=== PATIENT | female | born 1965 | race Caucasian/White ===

== ENCOUNTER → 2017-10-06 | Outpatient (CLI) | payer MEDICAID ==
[2017-10-06 10:24] LABS: T4, Free (Free Thyroxine) 0.83 ng/dL (0.78-2.19)
== END ==
LOC: LABWHC1 09:22
PROVIDERS: ATTEND Obstetrics & Gynecology
DX: N91.2 Amenorrhea, unspecified (principal); Z13.220 Encounter for screening for lipoid disorders; Z13.29 Encounter for screening for other suspected endocrine disorder
CPT/HCPCS: 36415; 80061; 82670; 82947; 83001; 83002; 84439; 84443

== ENCOUNTER → 2018-07-23 | Outpatient (CLI) | payer MEDICAID ==
[2018-07-24 04:06] LABS: T4, Free (Free Thyroxine) 1.1 ng/dL (0.80-1.80)
[2018-07-24 04:10] LABS: Vitamin D 25 Hydroxy 30.8 ng/mL (30.0-100.0)
== END | disposition home or self-care (01) ==
LOC: LABWHC1 14:33
PROVIDERS: ATTEND Obstetrics & Gynecology
DX: R53.83 Other fatigue (principal); G47.9 Sleep disorder, unspecified; N95.1 Menopausal and female climacteric states; R61 Generalized hyperhidrosis
CPT/HCPCS: 36415; 82306; 82607; 82670; 83001; 84403; 84439; 84443

== ENCOUNTER → 2018-08-26 | Outpatient (CLI) | payer MEDICAID ==
--- NOTE | 2018-08-27 10:09 | MM ---
Reason for exam: screening (asymptomatic). Last mammogram was performed 1 year and 3 months ago. History: Patient is postmenopausal. Physical Findings: A clinical breast exam by your physician is recommended on an annual basis and results should be correlated with mammographic findings. MG 3D Screening Mammo W/Cad Bilateral CC and MLO view(s) were taken. Prior study comparison: May 23, 2017, bilateral MG 3d screening mammo w/cad. September 30, 2014, bilateral MG screening mammo w CAD. The breast tissue is heterogeneously dense. This may lower the sensitivity of mammography. There is no discrete abnormality. No significant changes when compared with prior studies. ASSESSMENT: Negative, BI-RAD 1 RECOMMENDATION: Routine screening mammogram of both breasts in 1 year.
== END | disposition home or self-care (01) ==
LOC: RADMAMWWP 08:28
PROVIDERS: ATTEND Obstetrics & Gynecology
DX: Z12.31 Encounter for screening mammogram for malignant neoplasm of breast (principal)
CPT/HCPCS: 77063; 77067

== ENCOUNTER → 2018-09-14 | Outpatient (CLI) | payer MEDICAID | END | disposition home or self-care (01) | LOC: LABWHC1 08:36 | PROVIDERS: ATTEND Obstetrics & Gynecology | DX: N95.1 Menopausal and female climacteric states (principal); G47.00 Insomnia, unspecified; R53.83 Other fatigue; R61 Generalized hyperhidrosis; D51.9 Vitamin B12 deficiency anemia, unspecified | CPT/HCPCS: 36415; 82670; 83001; 84403 ==

== ENCOUNTER 2019-06-05 12:21 | Emergency (ER) | payer MEDICAID ==
[2019-06-05 12:26] VITALS: TEMP 98.2
--- NOTE | 2019-06-05 12:51 | ED ---
General Adult HPI - General Chief complaint: Extremity Injury, Upper Stated complaint: broken arm-sent by [facility] Time Seen by Provider: 06/05/19 12:25 Source: patient, RN notes reviewed, old records reviewed Mode of arrival: ambulatory Limitations: no limitations - History of Present Illness Initial comments: This is a 53-year-old female who presents emergency Department complaining of a right forearm pain. Patient states last evening she was jumping out of bed after having had a few drinks fell off the bed and had significant pain in the right forearm. Patient went to urgent care today they told her she comes emergency Department but she's not really sure why. Patient denies any numbness. Patient denies any upper arm or shoulder pain patient does any other injury at this time. - Related Data Previous Rx's Medication Instructions Recorded Hydrocodone/Acetaminophen [Baudette 1 each PO Q4HR PRN #14 tab 06/05/19 5325] Allergies Allergy/AdvReac Type Severity Reaction Status Date / Time No Known Allergies Allergy Verified 06/05/19 12:26 Review of Systems ROS Statement: Those systems with pertinent positive or pertinent negative responses have been documented in the HPI. ROS Other: All systems not noted in ROS Statement are negative. Past Medical History Past Medical History: No Reported History History of Any Multi-Drug Resistant Organisms: None Reported Past Surgical History: Section, Orthopedic Surgery Additional Past Surgical History / Comment(s): Cardiac Ablation Past Psychological History: No Psychological Hx Reported Smoking Status: Never smoker Past Alcohol Use History: Occasional Past Drug Use History: None Reported General Exam - General Exam Comments Initial Comments: GENERAL: Patient is well-developed and well-nourished. Patient is nontoxic and well- hydrated and is in moderate distress. ENT: Neck is soft and supple. Neck has full range of motion without eliciting any pain. EYES: The sclera were anicteric and conjunctiva were pink and moist. Extraocular movements were intact and pupils were equal round and reactive to light. Eyelids were unremarkable. SKIN: Skin is clear with no lesions or rashes and otherwise unremarkable. NEUROLOGIC: Patient is alert and oriented x3. Cranial nerves II through XII are grossly intact. Motor and sensory are also intact. Normal speech, volume and content. Symmetrical smile. MUSCULOSKELETAL: Right arm is tender to palpation in the mid to distal forearm. PSYCHIATRIC: Normal psychiatric evaluation. Limitations: no limitations Course Vital Signs 06/05/19 06/05/19 06/05/19 12:22 14:31 14:33 Temperature 98.2 F Pulse Rate 68 82 81 Respiratory 18 18 20 Rate Blood Pressure 142/73 129/91 131/91 O2 Sat by Pulse 98 98 100 Oximetry 06/05/19 06/05/19 06/05/19 14:38 14:40 14:45 Temperature Pulse Rate 92 89 68 Respiratory 16 16 16 Rate Blood Pressure 131/91 145/78 134/85 O2 Sat by Pulse 100 100 100 Oximetry 06/05/19 06/05/19 15:00 15:15 Temperature Pulse Rate 68 66 Respiratory 16 18 Rate Blood Pressure 138/80 130/66 O2 Sat by Pulse 99 100 Oximetry Procedures - Orthopedic Fracture Reduction Fracture #1 Consent Obtained: verbal consent Side: right Fracture Reduction Location: radius Analgesia: procedural sedation Technique: direct manipulation Post Reduction X-rays Demonstrate: acceptable reduction Post-Reduction Neuro Exam: intact Post-Reduction Vascular Exam: intact Splint Applied: Yes Patient Tolerated Procedure: well - Orthopedic Splinting/Casting Injury #1 Side: right Upper Extremity Injury Location: long arm, wrist Upper Extremity Immobilizer: sugar tong splint - Procedural Sedation Procedural Sedation Start Time: 14:33 Procedural Sedation Stop Time: 15:50 Indications: fracture/dislocation reduction ASA Class: I Mallampati Airway Score: 1 Preparation: vascular surgery physician applied, pulse oximeter, supplemental O2 applied IV Etomidate Dose (mgs): 15 Complications: none Medical Decision Making - Medical Decision Making X-ray of the radius and ulnar shows a ulnar styloid fracture and a comminuted displaced intra-articular distal radius fracture. I spoke with Dr. Wong and he wanted me to attempt some reduction on and then get a CAT scan. I did reduce it it was improved it was not however anatomic. Patient he is CT of the right wrist. Disposition Clinical Impression: Closed fracture distal radius and ulna Disposition: HOME SELF-CARE Condition: Good Instructions (If sedation given, give patient instructions): Wrist Fracture in Adults (ED) Prescriptions: Hydrocodone/Acetaminophen [Baudette 5-325] 1 each PO Q4HR PRN #14 tab PRN Reason: Pain Is patient prescribed a controlled substance at d/c from ED?: Yes When asked, does pt state using other controlled substances?: Yes If prescribed controlled substance>3 days was MAPS reviewed?: No If opioid is for acute pain is fill amount 7 days or less?: Yes If Rx opioid, was Start Talking consent form obtained?: Yes Referrals: Jarrod Villalobos DO [Medical Doctor] - 1-2 days Time of Disposition: 15:35
[2019-06-05] MEDS ORDERED: ONDANSETRON ODT 4 MG TAB PO STA (13:22)
[2019-06-05] MEDS ORDERED: MORPHINE SULFATE 4 MG/ML SYRINGE IM STA (13:22)
--- NOTE | 2019-06-05 13:53 | XR ---
EXAMINATION TYPE: XR wrist complete RT , 3 VIEWS DATE OF EXAM ORDERED: 06/05/2019 HISTORY: Trauma . COMPARISON: None. FINDINGS: There is immobilized in a fiberglass cast. There is a comminuted fracture of the distal radius and ulnar styloid. The remainder of the wrist has a normal appearance. The radial fracture is intra-articular and the distal fragment is tilted allocations clerk iorly approximately 20 degrees. IMPRESSION: COMMINUTED COLLIE'S TYPE FRACTURE OF THE DISTAL RADIUS AND ULNA. CODE A: INITIAL ENCOUNTER FOR CLOSED FRACTURE.
--- NOTE | 2019-06-05 13:55 | XR ---
EXAMINATION TYPE: XR forearm RT , 2 VIEWS DATE OF EXAM ORDERED: 06/05/2019 HISTORY: Trauma . COMPARISON: None. FINDINGS: Once again a comminuted Colles' type fracture of the distal radius and ulna is again ident ified. No other long bone fracture is seen. There is approximately 22 to 25 degrees of posterior angu lation of the distal radial fragment. IMPRESSION: COLLES' TYPE FRACTURE OF THE DISTAL RADIUS AND ULNA. CODE A: INITIAL ENCOUNTER FOR CLOSED FRACTURE.
[2019-06-05] MEDS ORDERED: ETOMIDATE 2 MG/ML 10 ML VIAL IVP STA (14:33)
[2019-06-05] MEDS ORDERED: MORPHINE SULFATE 2 MG/ML SYRINGE IVP STA ×2 (14:44→15:36)
--- NOTE | 2019-06-05 15:11 | XR ---
EXAMINATION TYPE: XR wrist limited RT DATE OF EXAM: 06/05/2019 COMPARISON: NONE HISTORY: Post reduction TECHNIQUE: 2 views FINDINGS: 2 views were obtained through the cast that show impacted comminuted fracture distal radius . There is fracture ulnar styloid process. There is slight improved apposition and alignment of the r adius fragments compared to initial exam. There is no dislocation. IMPRESSION: Improved anatomic position of the fragments.
[2019-06-05 15:35] VITALS: RESP 16
--- NOTE | 2019-06-05 15:40 | CT ---
EXAMINATION TYPE: CT wrist RT wo con DATE OF EXAM: 06/05/2019 COMPARISON: None HISTORY: Trauma, right wrist injury. CT DLP: 231.3 mGycm Automated exposure control for dose reduction was used. FINDINGS: There is impacted comminuted fracture of the distal radius. Transverse fracture line is 14 mm from th e wrist joint. The carpal bones appear intact. Metacarpals are intact. There is 5 mm displaced fractu re of the ulnar styloid process. There is some impaction of the radius fragment. There is mild higher education administrator ior displacement of the carpus in relation to the radius shaft. IMPRESSION: COMMINUTED IMPACTED DISTAL RADIUS FRACTURE WITH FRACTURE LINE EXTENDING TO THE RADIOCARPAL JOINT. ULN AR STYLOID PROCESS FRACTURE. MILD POSTERIOR DISPLACEMENT OF THE CARPUS OF APPROXIMATELY 7 MM ON THE S AGITTAL IMAGES.
[2019-06-05 16:07] VITALS: BP 148/76; PULSE 72
== END 2019-06-05 16:10 | disposition home or self-care (01) ==
LOC: EC 12:21
DX: S52.591A Other fractures of lower end of right radius, initial encounter for closed fracture (principal); S52.611A Displaced fracture of right ulna styloid process, initial encounter for closed fracture; W06.XXXA Fall from bed, initial encounter; Y93.89 Activity, other specified
CPT/HCPCS: 73090; 73100; 73110; 73200; 99284; 25605; 99152; 99153 ×4; 96374; 96376; 96372; J2270 ×2

== ENCOUNTER → 2019-06-14 | Outpatient (CLI) | payer MEDICAID | END | disposition home or self-care (01) | LOC: LABWHC1 14:39 | PROVIDERS: ATTEND Orthopaedic Surgery | DX: M25.531 Pain in right wrist (principal); S52.571A Other intraarticular fracture of lower end of right radius, initial encounter for closed fracture; S52.614A Nondisplaced fracture of right ulna styloid process, initial encounter for closed fracture; E55.9 Vitamin D deficiency, unspecified | CPT/HCPCS: 36415; 82306 ==

== ENCOUNTER 2019-06-15 07:52 | Day surgery (SDC) | payer MEDICAID ==
[2019-06-11 09:41] VITALS: BMI 22.9
[~2019-06-15 07:52] MED LIST: DEXAMETHASONE SOD PHOSPHATE 10 MG/ML 1 ML VIAL IV ONE; HYDROmorphone 0.5 MG/0.5 ML SYRINGE IVP PRN; LACTATED RINGERS 1,000 ML IV SCH; LIDOCAINE 1% 20 ML VIAL (10MG/ML) FOR IV START INTRADERMA PRN; ONDANSETRON 4 MG/2 ML VIAL IVP ONE
[2019-06-15] MEDS ORDERED: MIDAZOLAM 2 MG/2 ML VIAL IV ONE (09:20)
[2019-06-15] MEDS ORDERED: DEXAMETHASONE SOD PHOSPHATE 4 MG/ML 1 ML VIAL ONE (09:53)
[2019-06-15] MEDS ORDERED: GLYCOPYRROLATE 0.2 MG/ML 2 ML VIAL ONE (09:53)
[2019-06-15] MEDS ORDERED: PHENYLEPHRINE-0.9% NACL SYG 1 MG/10 ML SYRINGE ONE (09:53)
[2019-06-15] MEDS ORDERED: PROPOFOL 10 MG/ML 20 ML VIAL IV ONE (09:53)
[2019-06-15] MEDS ORDERED: ROPIVACAINE 5 MG/ML 30 ML VIAL ONE (09:53)
[2019-06-15] MEDS ORDERED: MIDAZOLAM 2 MG/2 ML VIAL ONE (09:53)
[2019-06-15] MEDS ORDERED: fentaNYL (PF) 50 MCG/ML 2 ML AMP ONE (09:53)
[2019-06-15] MEDS ORDERED: BUPIVACAINE (PF) 0.5% 30 ML VIAL SQ ONE ×2 (10:32→12:23)
[2019-06-15] MEDS ORDERED: LIDOCAINE 1%-EPI 1:100,000 20 ML VIAL SQ ONE ×2 (10:33→12:23)
[2019-06-15] MEDS ORDERED: LACTATED RINGERS 1,000 ML IV ONE (11:57)
--- NOTE | 2019-06-15 12:17 | XR ---
Limited right wrist HISTORY: Wrist fracture 6 intraoperative C-arm images document the procedure.
--- NOTE | 2019-06-15 12:17 | FL ---
Fluoroscopy HISTORY: Wrist fracture 1 minute 5 seconds fluoroscopy time supplied to the referring clinician. 6 intraoperative C-arm imag es document the procedure. See dictated report from orthopedic surgery.
[2019-06-15 12:40] VITALS: TEMP 97
[2019-06-15 12:53] VITALS: RESP 16
[2019-06-15 14:06] VITALS: BP 125/81; PULSE 67
--- NOTE | 2019-06-15 20:41 | P.ANPRN ---
Procedure Note - Anesthesia - Nerve Block Performed Right Supraclavicular Single Time Out Performed: Yes Date of Procedure: 06/15/19 Location of Patient: PreOp Indication: Acute Post-Operative Pain, Requested by Surgeon Sedation Type: Sedate with meaningful contact maintained Preparation: Sterile Prep Position: Supine Needle Types: Pajunk Needle Gauge: 21 Ultrasound used to visualize needle placement: Yes Ultrasound used to observe medication spread: Yes Blood Aspirated: No Pain Paresthesia on Injection Noted: No Resistance on Injection: Normal Image Stored and Saved: Yes Events: Uneventful and Well Tolerated (ropi .5% 30cc plus dexamethasone 4mg)
--- NOTE | 2019-06-18 16:08 | P.OP ---
Date of Procedure: 06/15/19 Preoperative Diagnosis: Displaced, comminuted intraarticular right distal radius fracture. Postoperative Diagnosis: Displaced, comminuted intraarticular right distal radius fracture. Procedure(s) Performed: Open reduction and internal fixation of intra-articular right distal radius fracture (greater than 3 parts). Implants: Acumed Acu-Loc 2 long, standard width, right volar distal radius plate with locking and cortical screws and one Fragloc compression sleeve & screw Anesthesia: GETA, regional, local Surgeon: Jarrod Villalobos Test Rack Operator #1: Adenike León Estimated Blood Loss (ml): 5 Condition: stable Disposition: PACU Indications for Procedure: The patient is a pleasant 53-year-old female who sustained a displaced intra- articular distal radius fracture after a mechanical fall. Treatment options (and associated risks and benefits) were discussed in the office. Surgical treatment was recommended. In preop, the patient denied any additional questions or concerns and wished to proceed with surgery. Consent forms were signed. The operative site was confirmed and marked. Description of Procedure: The patient was administered a regional nerve block by the anesthesia team and then was brought to the operating suite. She was positioned supine with the operative limb on a hand table. All bony prominences were well-padded. Anesthesia was administered uneventfully. Prophylactic IV antibiotics were administered. A tourniquet was placed on the operative arm which was then prepped and draped in standard, sterile fashion. A timeout was performed, confirming patient identifiers, the operative side, the site and the procedure to be performed: all team members expressed agreement. The limb was exsanguinated with an Esmarch and the tourniquet was inflated. A standard volar FCR approach was utilized. The skin was incised sharply. The subcutaneous tissue were bluntly spread. The radial artery was identified and protected throughout the case. The FCR sheath was incised and the tendon was mobilized. The floor of the sheath was released and blunt dissection proceeded down to the pronator quadratus. There was a small transverse, traumatic rent in the muscle belly at the level of the fracture. This was sharply extended along the radial border and the pronator was subperiosteally elevated ulnarly. The distal aspect of the flexor pollicis longus origin was elevated to expose the radial metadiaphysis. The fracture site was visualized. There was an oblique fracture line extending across the metaphysis and into the DRUJ. A separate fragment of the volar lunate fossa was noted. Preoperative CT scan also showed another fragment of the dorsal rim of the lunate fossa, which was not seen from the volar approach. A manual reduction was performed and satisfactory initial alignment was achieved, confirmed with fluoroscopy. The plate was selected, based on the patients anatomy and fracture pattern, and was positioned on the volar radius. It was provisionally pinned in place with K- wires and its position was confirmed on imaging. A cortical screw was drilled, measured and inserted into the oblong hole of the shaft. With displaced fragments of both the dorsal and volar aspect of the lunate fossa, and multiple fracture lines extending into the DRUJ, the decision was made to further stabilize the intermediate column using the Frag-loc system. A small dorsal incision was marked, just ulnar to Gavin's tubercle. The skin was sharply incised. Spreading dissection was used to expose the extensor retinaculum, taking care to protect the traversing sensory nerves. A small split was made in the extensor retinaculum. The digital extensor tendons were mobilized to expose the dorsal radius. A large pointed reduction clamp was placed on the dorsal fragment and clamped to the plate through the volar exposure. The most distal/ulnar hole in the plate was selected. A 2.0 mm drill was inserted and advanced bicortically. The length was measured and a standard length Frag-loc compression sleeve was selected. The 2.5 mm drill was advanced unicortically through the Frag-loc drill guide to a positive stop. The compression sleeve was then inserted and screwed into the plate. A guidewire was advanced through the sleeve and out the dorsal wound, taking care to protect the extensor tendons.The compression screw was inserted dorsally over the guidewire and advanced until seated on the dorsal cortex. Excellent compression was achieved. The guidewire was removed. The remaining distal locking screws were drilled, measured and inserted, confirming length and trajectory with fluoroscopy. The proximal ulnar hole of the distal locking holes was not filled, since two fracture lines converged at this location. The provisional K-wires were removed. An additional cortical screw was drilled and inserted to further secure the plate to the metaphysis. Final x-rays were obtained which revealed satisfactory reduction of the fracture. A 20-degree inclined lateral view was obtained to confirm extra- articular screw placement. The wrist was then ranged under live fluoroscopy - no motion of the fracture fragments or fixation construct was appreciated. The wrist articulated smoothly in flexion, extension and rotation, without crepitus or instability. The wounds were thoroughly irrigated with normal saline. The pronator was loosely repaired over the plate with interrupted 2-0 Vicryl sutures. The dorsal extensor retinaculum was also repaired with interrupted Vicryl sutures. Passive digital flexion and extension showed smooth tendon excursion without tethering. The tourniquet was released after 94 minutes at 250 mm Hg. Good hemostasis was obtained with held pressure and electrocautery. The subcutaneous tissues were reapproximated with interrupted 3-0 Vicryl sutures. The incisions were closed with interrupted 4-0 nylon sutures. Local anesthetic with epinephrine was injected into the perioperative subcutaneous tissues for adjunctive postoperative pain control and hemostasis. A sterile dressing was applied, followed by a resting volar plaster splint. All sponge, needle and instrument counts were correct at the end of the case. The patient tolerated the procedure well and was taken to the recovery room in stable condition.
== END 2019-06-15 14:40 | disposition home or self-care (01) ==
LOC: OR 07:52
PROVIDERS: ATTEND Orthopaedic Surgery
DX: S52.571A Other intraarticular fracture of lower end of right radius, initial encounter for closed fracture (principal); S52.611A Displaced fracture of right ulna styloid process, initial encounter for closed fracture; Z79.890 Hormone replacement therapy; Z79.1 Long term (current) use of non-steroidal anti-inflammatories (NSAID); Z97.3 Presence of spectacles and contact lenses; Z98.890 Other specified postprocedural states; Z82.49 Family history of ischemic heart disease and other diseases of the circulatory system; W17.89XA Other fall from one level to another, initial encounter; Y93.39 Activity, other involving climbing, rappelling and jumping off
CPT/HCPCS: 25609; 64415; 76942; 73100; C1713; J2250; J1100 ×2; J0690; J2405; J3010; J2795; J2370; J2704; 64413

== ENCOUNTER 2020-03-21 09:53 | Day surgery (SDC) | payer BC ==
[2020-03-16 11:14] VITALS: BMI 21.9
[2020-03-21] MEDS ORDERED: LACTATED RINGERS 1,000 ML IV SCH (10:12)
[2020-03-21 10:25] VITALS: RESP 16; TEMP 97
[2020-03-21] MEDS ORDERED: LIDOCAINE 1% (10MG/ML) FOR IV START INTRADERMA ONE (10:32)
[2020-03-21] MEDS ORDERED: LACTATED RINGERS 1,000 ML IV ONE (10:32)
[2020-03-21] MEDS ORDERED: LIDOCAINE 1% INJ 10MG/ML (20 ML MDV) ONE (10:48)
[2020-03-21] MEDS ORDERED: MIDAZOLAM 2 MG/2 ML VIAL ONE (10:48)
[2020-03-21] MEDS ORDERED: PROPOFOL 10 MG/ML 20 ML VIAL IV ONE (10:48)
[2020-03-21] MEDS ORDERED: fentaNYL (PF) 50 MCG/ML 2 ML AMP ONE (10:48)
--- NOTE | 2020-03-21 10:56 | P.GSHP ---
History of Present Illness H&P Date: 03/21/20 Chief Complaint: Rectal bleeding, epigastric pain Patient here today for upper and lower endoscopy. Patient is had complaints of vague upper abdominal pain associated with nausea and weight loss. Increased heartburn and some dysphagia. Takes intermittent antiacids. Patient with family history of colon cancer in her sister. Recently had an episode herself of rectal bleeding. Last colonoscopy 7 years ago was normal. Past Medical History Past Medical History: No Reported History, GERD/Reflux Additional Past Medical History / Comment(s): current nausea and blood in stool, pt states has had chronic "raspy voice" History of Any Multi-Drug Resistant Organisms: None Reported Past Surgical History: Section, Orthopedic Surgery, Uterine Ablation Additional Past Surgical History / Comment(s): rt wrist plate and screws, parotid gland benign tumor left side, RIGHT ROTATOR CUFF, LEFT LOWER LEG FX. Past Anesthesia/Blood Transfusion Reactions: Postoperative Nausea & Vomiting (PONV) Smoking Status: Never smoker - Past Family History Brother(s) Family Medical History: Cancer Additional Family Medical History / Comment(s): BONE CANCER Sister(s) Family Medical History: Cancer Additional Family Medical History / Comment(s): COLON CANCER Medications and Allergies Home Medications Medication Instructions Recorded Confirmed Type Progesterone, Micronized 200 mg PO HS 06/11/19 03/16/20 History [Progesterone] valACYclovir [Valtrex] 500 mg PO BID PRN 06/11/19 03/16/20 History Allergies Allergy/AdvReac Type Severity Reaction Status Date / Time No Known Allergies Allergy Verified 03/21/20 10:16 Surgical - Exam Vital Signs Temp Pulse Resp BP Pulse Ox 97.0 F L 53 L 16 155/66 100 03/21/20 10:24 03/21/20 10:24 03/21/20 10:24 03/21/20 10:24 03/21/20 10:24 Physical exam: General: Well-developed, well-nourished HEENT: Normocephalic, sclerae nonicteric Abdomen: Nontender, nondistended Extremities: No edema Neuro: Alert and oriented Assessment and Plan (1) Rectal bleeding Narrative/Plan: Will proceed with upper and lower endoscopy Current Visit: Yes Status: Acute Code(s): K62.5 - HEMORRHAGE OF ANUS AND RECTUM SNOMED Code(s): 94434550
--- NOTE | 2020-03-21 11:34 | P.PCN ---
Date of Procedure: 03/21/20 Procedure(s) Performed: PREOPERATIVE DIAGNOSIS: GI bleed, GERD, family history of colon cancer POSTOPERATIVE DIAGNOSIS: Mild gastritis, small hiatal hernia, descending colon polyp, descending colon polyp, hemorrhoids PROCEDURE: 1. EGD with biopsy 2. Colonoscopy with snare polypectomy ANESTHESIA: [facility] SURGEON: Randall Velazco M.D. SPECIMENS: Antrum, polyps ENDOSCOPIC PROCEDURE: The patient was on the endoscopy table in the left decubitus position. The Olympus gastroscope was inserted into the oropharynx and passed under direct visualization to the region of the third portion of the duodenum. From that point the scope was slowly withdrawn inspecting all surfaces carefully. There were no neoplastic inflammatory or polypoid lesions throughout the duodenum. The pylorus was widely patent. The stomach was carefully inspected. There was mild gastritis present. A biopsy of the antrum took place to rule out H. pylori. Retroflexion revealed a small hiatal hernia. The esophagus was then carefully examined. There were no neoplastic inflammatory or polypoid lesions throughout the visualized esophagus. The patient was kept on the endoscopy table in the left decubitus position. The Olympus colonoscope was inserted into the anus and passed under direct visualization to the base of the cecum. The appendiceal orifice was visualized. From that point the scope was slowly withdrawn inspecting all surfaces carefully. There were no neoplastic inflammatory or polypoid lesions throughout the cecum. In the mid ascending colon a small polyp was noted and removed in 2 sections using the snare with cautery technique. The remainder of the transverse colon appeared normal. In the descending colon a small polyp was also seen and removed using the snare with cautery technique. The remainder of the descending sigmoid and rectum appeared normal. There was no visible diverticulosis. At the anus there is noted to be internal and external hemorrhoids. No evidence of recent or active bleeding. Digital rectal examination was normal. The patient was taken to the recovery room in stable condition per anesthesia guidelines. RECOMMENDATIONS: Await biopsy results. Consider daily antiacid therapy. Anticipate follow-up colonoscopy 5 years.
[2020-03-21 11:52] VITALS: BP 132/72; PULSE 57
== END 2020-03-21 12:27 | disposition home or self-care (01) ==
LOC: ORWHC2ENDO 09:53
PROVIDERS: ATTEND Surgery
DX: D12.2 Benign neoplasm of ascending colon (principal); D12.4 Benign neoplasm of descending colon; K29.50 Unspecified chronic gastritis without bleeding; K64.8 Other hemorrhoids; K64.4 Residual hemorrhoidal skin tags; K44.9 Diaphragmatic hernia without obstruction or gangrene; K21.9 Gastro-esophageal reflux disease without esophagitis; Z79.899 Other long term (current) drug therapy; Z98.891 History of uterine scar from previous surgery; Z98.890 Other specified postprocedural states; Z80.0 Family history of malignant neoplasm of digestive organs; Z80.8 Family history of malignant neoplasm of other organs or systems
CPT/HCPCS: 88305; 45385; 43239; J2250; J2001; J3010; J2704

== ENCOUNTER → 2020-04-07 | Outpatient (CLI) | payer BC ==
[2020-04-07 18:20] LABS: Estradiol 50.8 pg/mL
== END | disposition home or self-care (01) ==
LOC: LABWHC1 09:17
PROVIDERS: ATTEND Obstetrics & Gynecology
DX: E34.50 Androgen insensitivity syndrome, unspecified (principal); N95.1 Menopausal and female climacteric states
CPT/HCPCS: 36415; 82670; 83001; 84144; 84402; 84403

== ENCOUNTER → 2020-08-29 | Outpatient (CLI) | payer BC ==
--- NOTE | 2020-08-29 10:08 | BD ---
EXAMINATION TYPE: Axial Bone Density DATE OF EXAM: 08/29/2020 COMPARISON: NONE CLINICAL HISTORY: Height: 5 FT 8 1/2 IN Weight: FRAX RISK QUESTIONS: Alcohol (3 or more units per day): NO Family History (Parent hip fracture): NO Glucocorticoids (More than 3mos): NO (Ex: prednisone, prednisolone, methylprednisolone, dexamethasone, and hydrocortisone). History of Fracture in Adulthood: YES Secondary Osteoporosis: 1. Type 1 Diabetes: NO 2. Hyperthyroidism: NO 3. Menopause before 45: NO 4. Malnutrition: NO 5. Chronic liver disease: NO Rheumatoid Arthritis: NO Current Tobacco Use: NO RISK FACTORS HISTORY OF: History of Wrist Fracture: RT WRIST When: 2019 Surgery to Spine/Hip(right/left)/Wrist (right/left): RT WRIST When: 2019 Family History of Osteoporosis: NO Active: YES Diet low in dairy products/other sources of calcium: NO Postmenopausal woman: [employer] AGE 45 SYMPTOMS OF OMA HAVE PASSED Take estrogen and/or progesterone medications: BIOTEE How lon YEARS Lost more than 2 inches in height since high school: NO MEDICATIONS: Additional Medications: BIOTEE, PROGESTERONE Additional History: EXAM MEASUREMENTS: Bone mineral densitometry was performed using the Grokr System. Bone mineral density as measured about the Lumbar spine is: ----- L1-L4(G/cm2): 1.512 T Score Values are as follows: ----- L2: 2.7 ----- L3: 3.3 ----- L4: 2.6 ----- L1-L4: 2.8 BASELINE Bone mineral density about the R hip (g/cm2): 1.086 Bone mineral density about the L hip (g/cm2): 1.135 T Score values are as follows: -----R Neck: 0.3 -----L Neck: 0.7 -----R Total: 0.3 -----L Total: 0.7 BASELINE IMPRESSION: Normal (Values between +1 and -1 indicate normal bone mass). Consider repeating this study in 5 year s or sooner if there is some new clinical indication. NOTE: T-SCORE=SD OF THE YOUNG ADULT MEAN.
--- NOTE | 2020-08-29 13:32 | MM ---
Reason for exam: screening (asymptomatic). Last mammogram was performed 2 years ago. History: Patient is postmenopausal. Took hormonal contraceptives for 10 years. Took other hormone for 2 years. Physical Findings: A clinical breast exam by your physician is recommended on an annual basis and results should be correlated with mammographic findings. MG 3D Screening Mammo W/Cad Bilateral CC and MLO view(s) were taken. Prior study comparison: August 26, 2018, bilateral MG 3d screening mammo w/cad. May 23, 2017, bilateral MG 3d screening mammo w/cad. There are scattered fibroglandular densities. Finding: There are indeterminate calcifications in the upper outer quadrant of the left breast seen on MLO 8-9cm from the nipple. ASSESSMENT: Incomplete: need additional imaging evaluation, BI-RAD 0 RECOMMENDATION: Special view mammogram of the left breast. [facility] will attempt to contact patient to return for supplemental views.
== END | disposition home or self-care (01) ==
LOC: RADMAMWWP 07:08
PROVIDERS: ATTEND Obstetrics & Gynecology
DX: Z12.31 Encounter for screening mammogram for malignant neoplasm of breast (principal); Z78.0 Asymptomatic menopausal state
CPT/HCPCS: 77063; 77067; 77080

== ENCOUNTER → 2020-08-31 | Outpatient (CLI) | payer BC ==
--- NOTE | 2020-09-01 09:27 | MM ---
Reason for exam: additional evaluation requested from abnormal screening. Last mammogram was performed less than 1 month ago. History: Patient is postmenopausal. Took hormonal contraceptives for 10 years. Took other hormone for 2 years. Physical Findings: Nurse did not find any significant physical abnormalities on exam. MG 3D Work Up W/Cad LT LM and spot compression MLO view(s) were taken of the left breast. Prior study comparison: August 29, 2020, bilateral MG 3d screening mammo w/cad. August 26, 2018, bilateral MG 3d screening mammo w/cad. The breast tissue is heterogeneously dense. This may lower the sensitivity of mammography. Finding: There are intermediate concern, suspicious segmental calcifications in the upper outer quadrant of the left breast 9cm from the nipple. New finding since August 26, 2018. These results were verbally communicated with the patient and result sheet given to the patient on 08/31/20. ASSESSMENT: Suspicious, BI-RAD 4 RECOMMENDATION: Stereotactic core biopsy of the left breast. Called Dr. Dumont's office with mammographic findings and has scheduled an appointment for the patient for 10/19/20 at 8:[address] Velazco. Biopsy scheduled for 09/11/20 at 10:00. PRELIMINARY REPORT CALLED AND FAXED TO DR. VELAZCO ON 08/31/20.
== END | disposition home or self-care (01) ==
LOC: RADMAMWWP 08:56
PROVIDERS: ATTEND Obstetrics & Gynecology
DX: R92.8 Other abnormal and inconclusive findings on diagnostic imaging of breast (principal)
CPT/HCPCS: 77061; 77065

== ENCOUNTER → 2020-09-11 | Day surgery (SDC) | payer BC ==
[2020-09-11 09:06] VITALS: RESP 16
[2020-09-11 10:45] VITALS: BP 166/98; PULSE 67; TEMP 97.9
--- NOTE | 2020-09-11 16:20 | MM ---
EXAMINATION TYPE: MG stereo VAD BX LT DATE OF EXAM: 09/11/2020 COMPARISON: NONE CLINICAL HISTORY: Abnormal mammogram TECHNIQUE: Stereotactic guided core biopsy of left breast. FINDINGS: The procedure of stereotactic guided core biopsy was explained to the patient. Benefits, a lternatives, and risks were discussed. An informed consent was then obtained. [facility] was [facility]. Shortness pathway was lateral approach. Radiology provi ded targeting. Radiology performed the procedure. 7 core samples were obtained. Specimen: Specimen demonstrates multiple calcifications within the specimen. Post procedure mammogram: Post procedure mammogram was obtained. The clip is within the breast.. This is within the expected region on the lateral medial view. However, this is more midline than expecte d in the craniocaudal projection. There appears to be along the tract of air present. However, the ex act location biopsied in the cranial caudal projection is less certain. Final disposition will be pen ding pathology. In the absence of malignancy, short-term follow-up would be recommended. The patient tolerated the procedure well without any immediate complication. The patient was kept in the radiology department for short stay after the procedure and then discharged home in stable condi tion. IMPRESSION: 1. Stereotactic core biopsy grouped fine calcifications left breast 2. Potential clip migration. Recommendations: 1. Recommendations are pending pathology results.
== END ==
LOC: RADMAMWWP 08:47
PROVIDERS: ATTEND Surgery
DX: N60.12 Diffuse cystic mastopathy of left breast (principal); N60.82 Other benign mammary dysplasias of left breast; R92.1 Mammographic calcification found on diagnostic imaging of breast; L90.5 Scar conditions and fibrosis of skin; R92.8 Other abnormal and inconclusive findings on diagnostic imaging of breast
CPT/HCPCS: 88305; 19081; A4648; J2001

== ENCOUNTER → 2021-03-19 | Outpatient (CLI) | payer BC ==
--- NOTE | 2021-03-20 10:15 | MM ---
Reason for exam: follow-up at short interval from prior study. Last mammogram was performed 7 months ago. History: Patient is postmenopausal. Benign MG stereo VAD BX LT of the left breast, September 11, 2020. Took hormonal contraceptives for 10 years. Taking other hormone for 2 years. Physical Findings: Nurse did not find any significant physical abnormalities on exam. MG 3D Diag Mammo W/Cad LT CC and MLO view(s) were taken of the left breast. Prior study comparison: August 31, 2020, left breast MG 3d work up w/cad LT. August 29, 2020, bilateral MG 3d screening mammo w/cad. The breast tissue is heterogeneously dense. This may lower the sensitivity of mammography. Previous mammotome biopsy in the left breast. There is no discrete abnormality including area of concern. These results were verbally communicated with the patient and result sheet given to the patient on 03/19/21. ASSESSMENT: Benign, BI-RAD 2 RECOMMENDATION: Return to routine screening mammogram schedule for both breasts. Back on schedule.
== END | disposition home or self-care (01) ==
LOC: RADMAMWWP 12:49
PROVIDERS: ATTEND Surgery
DX: R92.2 Inconclusive mammogram (principal); Z79.3 Long term (current) use of hormonal contraceptives; Z78.0 Asymptomatic menopausal state
CPT/HCPCS: 77061; 77065

== ENCOUNTER → 2022-03-20 | Outpatient (CLI) | payer BC ==
--- NOTE | 2022-03-21 08:57 | MM ---
Reason for Exam: Screening (asymptomatic). Last mammogram was performed 1 year(s) and 6 month(s) ago. Patient History: Menarche at age 12. First Full-Term at age 20. Postmenopausal. Patient has history of breast feeding. Patient used Hormonal Contraceptives for 10 years. 09/11/2020, Benign Core Biopsy on the left side. Risk Values: Brooke 5 year model risk: 1.3%. NCI Lifetime model risk: 8.5%. Prior Study Comparison: 07/09/2010 Bilateral Screening Mammogram, [facility]. 09/30/2014 Bilateral Screening Mammogram, [facility]. 05/23/2017 Bilateral Screening Mammogram, [facility]. 08/26/2018 Bilateral Screening Mammogram, [facility] 08/29/2020 Bilateral Screening Mammogram, [facility]. 08/31/2020 Left Diagnostic Mammogram, [facility]. 03/19/2021 Left Diagnostic Mammogram, [facility]. Tissue Density: There are scattered fibroglandular densities. Findings: Analyzed By CAD. Mammotome biopsy clip left breast redemonstrated. There is no suspicious new group of microcalcifications or new suspicious mass in either breast. Overall Assessment: Benign, BI-RAD 2 Management: Screening Mammogram of both breasts in 1 year. A clinical breast exam by your physician is recommended on an annual basis and results should be correlated with mammographic findings. Electronically signed and approved by: Ciro Beard M.D.
== END | disposition home or self-care (01) ==
LOC: RADMAMWWP 10:08
PROVIDERS: ATTEND Obstetrics & Gynecology
DX: Z12.31 Encounter for screening mammogram for malignant neoplasm of breast (principal); Z78.0 Asymptomatic menopausal state
CPT/HCPCS: 77063; 77067

== ENCOUNTER → 2023-01-06 | Outpatient (CLI) | payer BC ==
--- NOTE | 2023-01-06 09:37 | US ---
EXAMINATION TYPE: US abdomen complete DATE OF EXAM: 01/06/2023 COMPARISON: NONE CLINICAL INDICATION: Female, 57 years old with history of K79.89 DISEASE OF LIVER; Patient states hav ing a calcium scoring test done at a different facility with liver cysts seen. TECHNIQUE: Multiple sonographic images of the abdomen are obtained. FINDINGS: EXAM MEASUREMENTS: Liver Length: 15.6 cm Gallbladder Wall: 0.2 cm CBD: 0.5 cm Spleen: 8.3 cm Right Kidney: 11.0 x 4.7 x 3.5 cm Left Kidney: 11.8 x 5.4 x 5.0 cm Pancreas: No prominent masses or lesions seen at time of scan Liver: Multiple cystic appearing lesions seen. Largest right lobe = 3.5 x 3.8 x 3.3 cm. Largest le ft lobe = 5.1 x 4.6 x 4.9 cm with possible posterior echoes. Gallbladder: wnl Evidence for sonographic Neal's sign: neg CBD: wnl Spleen: Scattered echogenic foci likely representing calcified granulomas scattered with Right Kidney: No evidence of hydronephrosis. Left Kidney: No evidence of hydronephrosis. Upper IVC: wnl Abd Aorta: No AAA visualized at time of scan The liver dentures multiple cystic structures. One with possible layering debris and thin septation. The intrahepatic portion of the IVC and proximal abdominal aorta are within normal limits. There is no evidence of cholelithiasis. Common bile duct is unremarkable. The visualized portions of the conklin creas are homogenous. Kidneys are symmetric and free of hydronephrosis. No renal lesions are seen. IMPRESSION: 1. Hepatic lesions probably representing cysts. One with layering debris and thin septation. This ca n be further characterized by MRI with liver mass protocol. 2. Splenic probable calcified granulomas. 3. No evidence of adenopathy.
== END | disposition home or self-care (01) ==
LOC: RADUSWWP 08:44
PROVIDERS: ATTEND Otolaryngology
DX: K76.89 Other specified diseases of liver (principal)
CPT/HCPCS: 76700

== ENCOUNTER → 2023-01-20 | Outpatient (CLI) | payer BC ==
--- NOTE | 2023-01-20 20:36 | MR ---
EXAMINATION TYPE: MR liver wo/w con DATE OF EXAM: 01/20/2023 7:01 PM INDICATION: Patient age:Female; 57 years old; Reason for study: K76.89 OTHER SPECIFIED DISEASES OF LIVER; PHH. Cyst on liver, Hepatic lesions COMPARISON: ultrasound 01/06/2023. TECHNIQUE: Multiplanar multi-sequence imaging was performed without contrast. Post contrast imaging was performed. Post IV contrast subtraction images were also submitted for review. IV Contrast: 7.5 cc Gadavist FINDINGS: LOWER CHEST: No gross irregularity. ABDOMEN Liver: Multiple hepatic cysts which are predominantly higher T2 low T1 signal. The largest in the lef t hepatic lobe measuring 5.7 x 4.7 cm has layering lower T2 signal within them corresponds with prior ultrasound imaging. The right hepatic lobe measuring 4.1 cm. These are simple appearing cyst. Some s maller cysts with more lobulated borders are also present possibly thin septations involving the righ t posterior 1.5 x 1.2 cm cysts series 411 image 30. Postcontrast imaging of the cysts demonstrates no abnormal suspicious postcontrast enhancement. No evidence for steatosis or cirrhosis. Gallbladder and Bile ducts: Gallbladder is nondistended no biliary ductal dilation. Pancreas: No ductal dilation no evidence of mass. Spleen: Unremarkable. Adrenal glands: Unremarkable. Kidneys: No evidence of obstructive uropathy. Dilation of the renal collecting system without definit justo hydronephrosis. No suspicious masses. Stomach and Bowel: No evidence for bowel obstruction. Few scattered Peritoneum: No evidence of pneumoperitoneum or free fluid. Vasculature: Unremarkable. No aortic aneurysm. Musculoskeletal: The osseous structures appear intact. Lymph Nodes: No gross evidence for lymphadenopathy. Abdominal wall: Small fat-containing umbilical hernia. IMPRESSION: 1. Left hepatic lobe cyst with layering debris. Additional other more simple appearing hepatic cysts and others with some thin septations. No suspicious hepatic observation. No observation that needs H CC criteria. 2. No evidence for acute abdominal process.
== END | disposition home or self-care (01) ==
LOC: RADMRIMAIN 17:32
PROVIDERS: ATTEND Family Medicine
DX: K76.89 Other specified diseases of liver (principal)
CPT/HCPCS: 74183; A9585

== ENCOUNTER → 2023-02-14 | Outpatient (CLI) | payer BC ==
[2023-02-15 02:06] LABS: Basophils # (A) 0.03 X 10*3/uL (0.00-0.10); Basophils % (A) 0.6 %; Eosinophils # (A) 0.05 X 10*3/uL (0.04-0.35); HCT 40.6 % (37.2-46.3); HGB 13.3 d/dL (12.0-15.0); Lymphocytes # (A) 1.69 X 10*3/uL (0.90-5.00); Lymphocytes % (A) 32.8 %; MCH 32.8 pg (27.0-32.0); MCHC 32.8 d/dL (32.0-37.0); Mean Platelet Volume 10.9 FL (9.5-12.2); Monocytes # (A) 0.42 X 10*3/uL (0.20-1.00); Monocytes % (A) 8.1 %; NRBC Per 100 WBC 0 X 10*3/uL (0.00-0.01); Neutrophils # (A) 2.96 X 10*3/uL (1.80-7.70); Neutrophils % (A) 57.3 %; Platelet Count 252 X 10*3/uL (140-440); RBC 4.06 X 10*6/uL (4.10-5.20); RDW 13.1 % (11.5-14.5); WBC 5.16 X 10*3/uL (4.50-10.00)
[2023-02-15 02:16] LABS: ALT 17 U/L (8-44); AST 27 U/L (13-35); Albumin 4.9 d/dL (3.8-4.9); Albumin/Globulin Ratio 2.23 Ratio (1.60-3.17); Alkaline Phosphatase 61 U/L (41-126); BUN/Creat Ratio 15.67 Ratio (12.00-20.00); Blood Urea Nitrogen 14.1 mg/dL (9.0-27.0); Calcium 10.1 mg/dL (8.7-10.3); Carbon Dioxide 25.6 mmol/L (21.6-31.8); Chloride 102 mmol/L (96-109); Globulin 2.2 d/dL (1.6-3.3); Glucose 86 mg/dL (70-110); Magnesium 2.2 mg/dL (1.5-2.4); Potassium 4.1 mmol/L (3.5-5.5); Sodium 140 mmol/L (135-145); Total Bilirubin 0.3 mg/dL (0.3-1.2); Total Protein 7.1 d/dL (6.2-8.2)
[2023-02-17 12:49] LABS: Glucose-6-Phosphate Dehydrogen 12.1 U/g Hgb (7.0-20.5)
== END | disposition home or self-care (01) ==
LOC: LABWHC1 10:50
PROVIDERS: ATTEND Physical Medicine & Rehabilitation
DX: Z00.01 Encounter for general adult medical examination with abnormal findings (principal); E55.9 Vitamin D deficiency, unspecified; K86.81 Exocrine pancreatic insufficiency; M04.9 Autoinflammatory syndrome, unspecified; R63.5 Abnormal weight gain; R79.82 Elevated C-reactive protein (CRP)
CPT/HCPCS: 36415; 80053; 82941; 82955; 83735; 84305; 85025

== ENCOUNTER → 2023-02-20 | Outpatient (CLI) | payer BC ==
[2023-02-20 20:41] LABS: Homocysteine 9.15 UMOL/L (4.00-14.00)
[2023-02-20 21:02] LABS: T4, Free (Free Thyroxine) 1.31 ng/dL (0.80-1.80)
[2023-02-20 21:30] LABS: Vitamin B12 >3600.0 pg/mL (200.0-944.0)
== END | disposition home or self-care (01) ==
LOC: LABWHC1 13:02
PROVIDERS: ATTEND Physical Medicine & Rehabilitation
DX: Z00.01 Encounter for general adult medical examination with abnormal findings (principal); Z12.11 Encounter for screening for malignant neoplasm of colon; K86.81 Exocrine pancreatic insufficiency; E55.9 Vitamin D deficiency, unspecified; M04.9 Autoinflammatory syndrome, unspecified; F41.9 Anxiety disorder, unspecified; K62.9 Disease of anus and rectum, unspecified; E78.5 Hyperlipidemia, unspecified; R63.5 Abnormal weight gain; R79.82 Elevated C-reactive protein (CRP)
CPT/HCPCS: 36415; 82180; 82306; 82607; 82728; 82746; 83090; 83695; 84252; 84255; 84432; 84439; 84443; 84481; 84482; 84630; 85652; 86038; 86140

== ENCOUNTER → 2023-03-21 | Outpatient (CLI) | payer BC ==
--- NOTE | 2023-03-25 22:55 | MM ---
Reason for Exam: Screening (asymptomatic). Last mammogram was performed 1 year(s) and 1 month(s) ago. Patient History: Menarche at age 12. First Full-Term at age 20. Postmenopausal. Patient has history of breast feeding. Patient used Hormonal Contraceptives for 10 years. 09/11/2020, Benign Core Biopsy on the left side. Risk Values: Brooke 5 year model risk: 1.4%. NCI Lifetime model risk: 8.3%. Prior Study Comparison: 08/31/2020 Left Diagnostic Mammogram, [facility]. 03/19/2021 Left Diagnostic Mammogram, [facility]. 03/20/2022 Bilateral MG 3D screening mammo w/cad, [facility]. Tissue Density: There are scattered fibroglandular densities. Findings: Analyzed By CAD. Microclip in the left breast from prior biopsy. There is no suspicious group of microcalcifications or new suspicious mass in either breast. Overall Assessment: Negative, BI-RAD 1 Management: Screening Mammogram of both breasts in 1 year. . Patient should continue monthly self-breast exams. A clinical breast exam by your physician is recommended on an annual basis. This exam should not preclude additional follow-up of suspicious palpable abnormalities. Note on Brooke scores and lifetime risk: 1. A Brooke score greater than 3% is considered moderate risk. If this is the case, consider specialist referral to assess eligibility for a risk reducing agent. 2. If overall lifetime risk for the development of breast cancer is 20% or higher, the patient may qualify for future screening with alternating mammogram and breast MRI. Electronically signed and approved by: Moshe Mendoza M.D. Radiologist
== END | disposition home or self-care (01) ==
LOC: RADMAMWWP 13:53
PROVIDERS: ATTEND Physical Medicine & Rehabilitation
DX: Z12.31 Encounter for screening mammogram for malignant neoplasm of breast (principal); Z78.0 Asymptomatic menopausal state
CPT/HCPCS: 77063; 77067

== ENCOUNTER → 2024-03-31 | Outpatient (CLI) | payer BC ==
--- NOTE | 2024-04-01 19:11 | MM ---
Reason for Exam: Screening (asymptomatic). Last screening mammogram was performed 12 month(s) ago. Patient History: Menarche at age 12. First Full-Term at age 20. Postmenopausal. Patient has history of breast feeding. Patient used Hormonal Contraceptives for 10 years. 09/11/2020, Benign Core Biopsy on the left side. Risk Values: Brooke 5 year model risk: 1.4%. NCI Lifetime model risk: 8.1%. Prior Study Comparison: 03/19/2021 Left Diagnostic Mammogram, [facility]. 03/20/2022 Bilateral MG 3D screening mammo w/cad, [facility]. 03/21/2023 Bilateral MG 3D screening mammo w/cad, [facility]. Tissue Density: There are scattered areas of fibroglandular density. Findings: Analyzed By CAD. There is no suspicious group of microcalcifications or new suspicious mass in either breast. Overall Assessment: Negative, BI-RAD 1 Management: Screening Mammogram of both breasts in 1 year. . Patient should continue monthly self-breast exams. A clinical breast exam by your physician is recommended on an annual basis. This exam should not preclude additional follow-up of suspicious palpable abnormalities. Note on Brooke scores and lifetime risk: 1. A Brooke score greater than 3% is considered moderate risk. If this is the case, consider specialist referral to assess eligibility for a risk reducing agent. 2. If overall lifetime risk for the development of breast cancer is 20% or higher, the patient may qualify for future screening with alternating mammogram and breast MRI. Electronically signed and approved by: Moshe Menodza M.D. Radiologist
== END | disposition home or self-care (01) ==
LOC: RADMAMWWP 15:54
PROVIDERS: ATTEND Physical Medicine & Rehabilitation
DX: Z12.31 Encounter for screening mammogram for malignant neoplasm of breast (principal); R92.323 Mammographic fibroglandular density, bilateral breasts; R92.333 Mammographic heterogeneous density, bilateral breasts; Z78.0 Asymptomatic menopausal state
CPT/HCPCS: 77063; 77067